=== PATIENT | male | born 1955 | race American Indian/Alaskan Native ===

== ENCOUNTER 2019-04-20 00:56 | Emergency (ER) | payer MEDICARE ==
--- NOTE | 2019-04-20 03:13 | Cat Scan Report ---
CT head/brain wo con INDICATION: fall from ladder. TECHNIQUE: Routine CT head without contrast. All CT scans at this location are performed using CT dos e reduction for ALARA by means of automated exposure control. COMPARISON: None. FINDINGS: BRAIN / INTRACRANIAL CONTENTS: No acute hemorrhage, mass effect, midline shift, or hydrocephalus. No appreciable acute large territorial or lacunar infarct. No chronic infarct or focal atrophy. Normal b rain volume and ventricular/sulcal size for age. ORBITS: No significant abnormality of visualized orbits. SINUSES / MASTOIDS: No significant abnormality of visualized sinuses and mastoid air cells. ADDITIONAL FINDINGS: None. IMPRESSION: 1. No acute intracranial abnormality. Signer Name: Jessica Aceves MD Signed: 04/20/2019 3:08 AM Workstation Name: [email or web address]
--- NOTE | 2019-04-20 03:17 | Cat Scan Report ---
CT CERVICAL SPINE WITHOUT CONTRAST INDICATION / CLINICAL INFORMATION: fall from ladder. TECHNIQUE: Axial CT images were obtained through the cervical spine. Sagittal and coronal reformatted images wer e produced. All CT scans at this location are performed using CT dose reduction for ALARA by means of automated exposure control. COMPARISON: None available. FINDINGS: VERTEBRAE: No significant abnormality. ALIGNMENT: No significant abnormality. DISC SPACES: Moderate to severe disc space narrowing throughout the cervical spine with anterior oste ophytes and posterior spurring. FACET JOINTS: Advanced facet hypertrophy throughout the cervical spine resulting in multilevel severe foraminal narrowing. CRANIOCERVICAL JUNCTION:Degenerative disc disease results in mild multilevel central canal narrowing, most prominent at C5-6 with the central canal measuring up to 8 to 9 mm AP. SPINAL CANAL: No significant abnormality. PARASPINAL SOFT TISSUES: No significant abnormality. ADDITIONAL FINDINGS: None. LUNG APICES: Emphysema. IMPRESSION: 1. No acute fracture identified. 2. Advanced degenerative change. Signer Name: Jessica Aceves MD Signed: 04/20/2019 3:12 AM Workstation Name: [id number]
[2019-04-20] MEDS ORDERED: oxyCODONE /ACETAMINOPHEN 5-325MG TAB PO ONE (04:17)
[2019-04-20] MEDS ORDERED: oxyCODONE /ACETAMINOPHEN 5-325MG TAB ONE (04:17)
[2019-04-20] MEDS ORDERED: KETOROLAC 60 MG/2 ML INJ IM ONE (04:17)
[2019-04-20] MEDS ORDERED: KETOROLAC 60 MG/2 ML INJ ONE (04:18)
--- NOTE | 2019-04-20 04:39 | Emergency Department Report ---
ED Fall HPI - General Chief Complaint: Fall Stated Complaint: FELL OFF LADDER NECK PAIN Time Seen by Provider: 04/20/19 04:11 Source: patient Mode of arrival: Ambulatory Limitations: No Limitations - History of Present Illness Initial Comments: 63-year-old male with no symptoms past medical history presents to Hospital complaining of neck pain status post fall off of a ladder hours prior to arrival. Patient fell off of approximately 5 foot ladder backwards striking the back of his head and back on the ground. Patient feels like he sustained a whip lash injury to his neck. He denies LOC, persistent headache, nausea, vomiting, chest pain, shortness of breath, or abdominal pain. He complains of mild lower back pain but states that his neck pain is bilateral and rated 10/10 in intensity, and exacerbated by movement. Patient presents with a soft collar to help immobilize his neck and took a Flexeril prior to arrival. He does not take any blood thinners or antiplatelet medication - Related Data Previous Rx's Medication Instructions Recorded Last Taken Type traMADol [Ultram] 50 mg PO Q4HR PRN #20 tablet 06/28/16 Unknown Rx Ibuprofen [Motrin] 800 mg PO Q8HR PRN #30 tablet 04/20/19 Unknown Rx oxyCODONE /ACETAMINOPHEN [Percocet 1 tab PO Q6HR PRN #15 tablet 04/20/19 Unknown Rx 5/325] Allergies Allergy/AdvReac Type Severity Reaction Status Date / Time No Known Allergies Allergy Unverified 06/28/16 18:31 ED Review of Systems ROS: Stated complaint: FELL OFF LADDER NECK PAIN Other details as noted in HPI Comment: All other systems reviewed and negative ED Past Medical Hx - Past Medical History Previous Medical History?: No - Surgical History Past Surgical History?: No - Social History Smoking Status: Never Smoker Substance Use Type: Alcohol - Medications Home Medications: Home Medications Medication Instructions Recorded Confirmed Last Taken Type traMADol [Ultram] 50 mg PO Q4HR PRN #20 tablet 06/28/16 Unknown Rx Ibuprofen [Motrin] 800 mg PO Q8HR PRN #30 tablet 04/20/19 Unknown Rx oxyCODONE /ACETAMINOPHEN [Percocet 1 tab PO Q6HR PRN #15 tablet 04/20/19 Unknown Rx 5/325] ED Physical Exam - General Limitations: No Limitations - Other Other exam information: Gen.: distress secondary to pain Head: no hematoma or laceration Eyes: Normal appearance ENT: Moist mucous membranes Neck: Normal appearance, generalized posterior midline cervical spine tenderness and bilateral paracervical muscle tenderness to palpation Chest: Clear to auscultation bilaterally Cardiovascular: Regular rate and rhythm Abdomen: Normal appearance, soft, nontender, no rebound or guarding, normal bowel sounds Back: Normal appearance, generalized lower back tenderness Extremity: Full range of motion, normal appearance Neuro: Alert O x 3, clear speech, though handgrip and foot strength 5/5. Sensation to touch grossly intact Psychiatric: Appropriate Skin: No rash ED Course Vital Signs 04/20/19 04/20/19 01:03 05:29 Temperature 98.0 F Pulse Rate 75 70 Respiratory 18 12 Rate Blood Pressure 171/90 Blood Pressure 122/87 [Left] O2 Sat by Pulse 94 92 Oximetry ED Medical Decision Making - Radiology Data Radiology results: report reviewed CT head/brain wo con INDICATION: fall from ladder. TECHNIQUE: Routine CT head without contrast. All CT scans at this location are performed using CT dose reduction for ALARA by means of automated exposure control. COMPARISON: None. FINDINGS: BRAIN / INTRACRANIAL CONTENTS: No acute hemorrhage, mass effect, midline shift, or hydrocephalus. No appreciable acute large territorial or lacunar infarct. No chronic infarct or focal atrophy. Normal brain volume and ventricular/sulcal size for age. ORBITS: No significant abnormality of visualized orbits. SINUSES / MASTOIDS: No significant abnormality of visualized sinuses and mastoid air cells. ADDITIONAL FINDINGS: None. IMPRESSION: 1. No acute intracranial abnormality. CT CERVICAL SPINE WITHOUT CONTRAST INDICATION / CLINICAL INFORMATION: fall from ladder. TECHNIQUE: Axial CT images were obtained through the cervical spine. Sagittal and coronal reformatted images were produced. All CT scans at this location are performed using CT dose reduction for ALARA by means of automated exposure control. COMPARISON: None available. FINDINGS: VERTEBRAE: No significant abnormality. ALIGNMENT: No significant abnormality. DISC SPACES: Moderate to severe disc space narrowing throughout the cervical spine with anterior osteophytes and posterior spurring. FACET JOINTS: Advanced facet hypertrophy throughout the cervical spine resulting in multilevel severe foraminal narrowing. CRANIOCERVICAL JUNCTION:Degenerative disc disease results in mild multilevel central canal narrowing, most prominent at C5-6 with the central canal measuring up to 8 to 9 mm AP. SPINAL CANAL: No significant abnormality. PARASPINAL SOFT TISSUES: No significant abnormality. ADDITIONAL FINDINGS: None. LUNG APICES: Emphysema. IMPRESSION: 1. No acute fracture identified. 2. Advanced degenerative change. XR LUMBAR SPINE HISTORY: Fall off ladder, back pain COMPARISON: None. TECHNIQUE: 3 view(s) of the lumbar spine obtained. FINDINGS: Vertebrae: Normal alignment. No displaced fracture or significant abnormality. Disc Spaces:Mild disc height loss with anterior osteophytes throughout the lumbar spine. Facet Joints:Moderate facet hypertrophy in the lower lumbar spine. Additional findings: Vascular calcifications are noted. IMPRESSION: 1. No acute abnormality identified. - Medical Decision Making Treated with Percocet and Toradol in the ED CT cervical spine and head do not show any acute findings - Differential Diagnosis fracture, contusion, sprain Critical Care Time: No Critical care attestation.: If time is entered above; I have spent that time in minutes in the direct care of this critically ill patient, excluding procedure time. ED Disposition Clinical Impression: Cervical strain, acute, Degenerative cervical disc, Cervical spinal stenosis, Lumbar strain, Closed head injury, Fall Disposition: TO HOME OR SELFCARE Is pt being admited?: No Does the pt Need Aspirin: No Condition: Stable Instructions: Minor Head Injury (ED), Low Back Strain (ED), Cervical Spinal Stenosis (ED), Cervical Sprain (ED), Degenerative Disc Disease (ED) Additional Instructions: Take the medication as prescribed. Follow-up with your doctor or with the doctor/clinic provided. Return if symptoms worsen as indicated by your discharge instructions. Prescriptions: Ibuprofen [Motrin] 800 mg PO Q8HR PRN #30 tablet PRN Reason: Pain, Moderate (4-6) oxyCODONE /ACETAMINOPHEN [Percocet 5/325] 1 tab PO Q6HR PRN #15 tablet PRN Reason: Pain Referrals: PRIMARY CARE, [Primary Care Provider] - 3-5 Days Time of Disposition: 05:56
--- NOTE | 2019-04-20 05:20 | XRay Report ---
XR LUMBAR SPINE HISTORY: Fall off ladder, back pain COMPARISON: None. TECHNIQUE: 3 view(s) of the lumbar spine obtained. FINDINGS: Vertebrae: Normal alignment. No displaced fracture or significant abnormality. Disc Spaces:Mild disc height loss with anterior osteophytes throughout the lumbar spine. Facet Joints:Moderate facet hypertrophy in the lower lumbar spine. Additional findings: Vascular calcifications are noted. IMPRESSION: 1. No acute abnormality identified. Signer Name: Jessica Aceves MD Signed: 04/20/2019 5:15 AM Workstation Name: [email or web address]
[2019-04-20 05:31] VITALS: BP 122/87
== END 2019-04-20 06:18 | disposition home or self-care (01) ==
LOC: ED 00:56
DX: S16.1XXA Strain of muscle, fascia and tendon at neck level, initial encounter (principal); S39.012A Strain of muscle, fascia and tendon of lower back, initial encounter; S09.90XA Unspecified injury of head, initial encounter; M48.02 Spinal stenosis, cervical region; M50.30 Other cervical disc degeneration, unspecified cervical region; Z79.899 Other long term (current) drug therapy; W11.XXXA Fall on and from ladder, initial encounter; Y93.89 Activity, other specified; Y92.89 Other specified places as the place of occurrence of the external cause; Y99.8 Other external cause status
CPT/HCPCS: 70450; 72100; 72125; 96372; 99284; J1885